=== PATIENT | female | born 1975 | race Two or more races ===

== ENCOUNTER 2021-01-12 14:34 | Emergency (ER) | payer MEDICAID, OTHER ==
[~2021-01-12] VITALS: Ht 165.1 cm; Wt 59.0 kg
[2021-01-12 15:00] VITALS: BP 106/67
== END 2021-01-12 19:20 | disposition left against medical advice (07) ==
LOC: EDUNIT# 14:34 → ER 14:34 → EDBD 14:34 → ER 19:20
DX: K46.9 Unspecified abdominal hernia without obstruction or gangrene (principal); Z88.0 Allergy status to penicillin; Z90.49 Acquired absence of other specified parts of digestive tract
CPT/HCPCS: 74176